=== PATIENT | female | born 1950 | race Caucasian/White ===

== ENCOUNTER 2018-11-27 05:17 | Emergency (ER) | payer MEDICARE ==
[~2018-11-27] VITALS: Ht 154.9 cm; Wt 47.7 kg
[2018-11-27 05:25] VITALS: TEMP 98.1
[2018-11-27] MEDS ORDERED: FLEXERIL 1010 MG/TAB PO (05:47)
[2018-11-27] MEDS ORDERED: LIDODERM 5% PATC1 EA TP (05:47)
[2018-11-27] MEDS ORDERED: PREDNISONE20 MG PO (05:47)
[2018-11-27 06:27] VITALS: BP 142/77; PULSE 67
== END 2018-11-27 06:32 | disposition home or self-care (01) ==
LOC: COL.ER 05:17
DX: M54.5 Low back pain (principal); G89.29 Other chronic pain; I10 Essential (primary) hypertension
CPT/HCPCS: J1885; J7512